=== PATIENT | female | born 1970 | race Caucasian/White ===

== ENCOUNTER 2022-01-18 21:56 | Emergency (ER) | payer BC ==
[~2022-01-18] VITALS: Ht 167.6 cm; Wt 67.7 kg
--- NOTE | 2022-01-18 22:37 | NUR ---
[employer] CALLED AND THEY REPORTED THAT THE DOSAGE WAS NOT ALARMING. PT SHOULD BE SAFE TO GO HOME LONG SYMPTOMS DO NOT WORSEN.
--- NOTE | 2022-01-18 23:43 | NUR ---
PATIENT ADMITS TO ACCIDENTALLY TAKING 100MG OF ZOLOFT IN STEAD OF 50MG PO AT 2100. S/S DIZZINESS AND TINGLING. DENIES S/S NOW
[2022-01-19 00:47] VITALS: BP 114/75
== END 2022-01-19 00:50 | disposition home or self-care (01) ==
LOC: ER 21:57
DX: F41.9 Anxiety disorder, unspecified (principal); T50.905A Adverse effect of unspecified drugs, medicaments and biological substances, initial encounter; R42 Dizziness and giddiness; Z88.8 Allergy status to other drugs, medicaments and biological substances; Y92.89 Other specified places as the place of occurrence of the external cause
CPT/HCPCS: 93005; 99283

== ENCOUNTER 2022-05-13 02:14 | Emergency (ER) | payer BC ==
[~2022-05-13] VITALS: Ht 167.6 cm; Wt 61.4 kg
[2022-05-13] MEDS ORDERED: TRAZ-251 PO (03:22)
[2022-05-13] MEDS ORDERED: LORazepam 1 MG tablet PO ONE (03:25)
[2022-05-13] MEDS ORDERED: traZODone 50mg tablet PO ONE (03:25)
[2022-05-13 03:36] VITALS: BP 111/84
== END 2022-05-13 03:38 | disposition home or self-care (01) ==
LOC: ER 02:15
DX: F41.9 Anxiety disorder, unspecified (principal); G47.00 Insomnia, unspecified; Z88.8 Allergy status to other drugs, medicaments and biological substances; Z79.899 Other long term (current) drug therapy
CPT/HCPCS: 99283

== ENCOUNTER 2022-05-18 01:22 | Emergency (ER) | payer BC ==
[~2022-05-18 01:22] MED LIST: TRAZ-251 PO
== END 2022-05-18 02:43 | disposition left against medical advice (07) ==
LOC: ER 01:23
DX: G47.00 Insomnia, unspecified (principal); Z53.21 Procedure and treatment not carried out due to patient leaving prior to being seen by health care provider

== ENCOUNTER 2022-05-24 15:03 | Emergency (ER) | payer BC ==
[~2022-05-24] VITALS: Ht 167.6 cm; Wt 58.2 kg
[2022-05-24 16:04] VITALS: BP 109/70
[2022-05-24 17:44] LABS: EOSINOPHILS # (AUTO) 0.1 X10'3 (0-0.9); MONOCYTES # (AUTO) 0.4 X10'3 (0-0.9)
[2022-05-24 17:46] LABS: BASOPHILS # (AUTO) 0.1 X10'3 (0-0.2); BASOPHILS % (AUTO) 0.8 % (0-1); EOSINOPHILS % (AUTO) 1.7 % (0-6); HEMATOCRIT 39.7 % (35.0-45.0); HEMOGLOBIN 13.5 g/dl (12.0-16.0); LYMPHOCYTES # (AUTO) 1.5 X10'3 (1.1-4.8); MEAN CORPUSCULAR HEMOGLOBIN 31.4 PG (27.0-31.0); MEAN CORPUSCULAR HGB CONC 34.1 g/dL (33.0-36.5); MEAN CORPUSCULAR VOLUME 92.2 FL (78-98); MEAN PLATELET VOLUME 10.4 FL (7.4-10.4); NEUTROPHILS # (AUTO) 4.3 X10'3 (1.8-7.7); NEUTROPHILS % (AUTO) 67.5 % (42-75); PLATELET COUNT 194 X10'3 (140-440); RED CELL DISTRIBUTION WIDTH 13.7 % (11.5-14.5); WHITE BLOOD COUNT 6.4 X10'3 (4.5-11.0)
[2022-05-24 17:58] LABS: ALANINE AMINOTRANSFERASE 18 U/L (12-78); ALBUMIN 3.9 G/DL (3.4-5.0); ALBUMIN/GLOBULIN RATIO 1.1 (1.1-1.5); ALKALINE PHOSPHATASE 73 IU/L (46-116); ANION GAP 8 (8-16); ASPARTATE AMINO TRANSFERASE 11 U/L (10-37); BILIRUBIN,TOTAL 0.3 MG/DL (0.1-1.0); BLOOD UREA NITROGEN 13 MG/DL (7-18); BUN/CREATININE RATIO 19.7 (6.6-38.0); CALCIUM 9.1 MG/DL (8.5-10.1); CHLORIDE 103 MMOL/L (99-107); CREATININE 0.66 MG/DL (0.40-0.90); GLUCOSE 99 MG/DL (70-104); POTASSIUM 3.9 MMOL/L (3.5-5.1); SODIUM 140 MMOL/L (135-145); TOTAL CARBON DIOXIDE 29.5 MMOL/L (24-32); TOTAL PROTEIN 7.5 G/DL (6.4-8.2); eGFR > 90 ML/MIN
[2022-05-24 18:07] LABS: ETHANOL < 0.010 GM/DL (0.0-0.010)
== END 2022-05-24 20:17 | disposition left against medical advice (07) ==
LOC: ER 15:04
DX: F41.9 Anxiety disorder, unspecified (principal); G47.00 Insomnia, unspecified; Z53.21 Procedure and treatment not carried out due to patient leaving prior to being seen by health care provider
CPT/HCPCS: 36415; 80053; 80320; 84443; 85025

== ENCOUNTER 2025-10-06 20:46 | Emergency (ER) | payer BC ==
[~2025-10-06] VITALS: Ht 165.1 cm; Wt 56.8 kg
[2025-10-06 20:48] VITALS: BP 114/74; PULSE 90; RESP 16; O2SAT 99
[2025-10-06] MEDS: ALPRAZolam 0.25mg tablet PO ONE (21:08)
[2025-10-06] MEDS ORDERED: ALPR0.252 PO (21:34)
--- NOTE | 2025-10-06 21:34 | Physician Documentation ---
History of Present Illness ~ Chief Complaint: Anxiety Stated Complaint: ANXIETY Time Seen by MD: 21:01 HPI 55-year-old female experiencing situational life crisis with prior history of anxiety. She is scheduled scheduled for a psychiatry follow up on the 20 of October. She is requiring some breakthrough medication between now and then. She does have a prior history similar episode many years ago. No SI or HI tonight and she is to refer with anxiousness. She is accompanied by her . Long shared decision-making discussion regarding bridging her with Xanax with 1st dose in the emergency department tonight. She has access to her primary care's urgent care office tomorrow which accompanies the 1st each office. It is hopeful she will get a sooner appointment with Psychiatry after visiting her primary care tomorrow. She is very safe for discharge in he is coping well. Medication Reconciliation Allergies: Coded Allergies: prochlorperazine (Verified Allergy, Unknown, ANXIETY, 10/06/25) Scheduled Trazodone HCl (Trazodone HCl), 1 TAB PO HS Scheduled PRN Alprazolam (Xanax), 1 TAB PO Q12H PRN PRN for anxiety Past Medical History Past Medical History: Anxiety Past Surgical History: no surgical history Alcohol Use: None Drug Use: none Lives with: Family Lives In: Home Review of Systems All Other Systems at this time: Reviewed and Negative Constitutional: Reports: see HPI Physical Exam Vital Signs: RN Vital Signs have been reviewed: Yes, Temperature: 97.6, Source: Temporal, Heart Rate: 90, Respiratory Rate: 16, BP: 114/74, Pulse Oximetry: 99, Weight: 56.800 General Appearance: alert, other (To depressed) EENT: PERRL/EOMI Head: normal inspection Cardiovascular: normal peripheral pulses Extremities: non-tender Back: normal inspection Neurologic: oriented x4 Motor / Sensory: no motor deficit Appearance/Memory/Insight: appropriate appearance, appropriate insight Behavior/Eye contact/Speech: cooperative Thought/Hallucinations: normal thought pattern; No: flight of ideas Affect: appropriate Skin: warm/dry Progress Results/Orders Results/Orders Completed Orders - MIMI CAMPOS PAC Alprazolam Tablet (Xanax Tablet) (10/06/25 21:05) Medications Received in ER Medications (Trade) Dose Ordered Sig/Ramos Route PRN Reason Start Time Stop Time Status Last Admin Dose Admin (Xanax tablet) 0.25 mg ONCE ONCE PO 10/06/25 21:05 10/06/25 21:06 DC 10/06/25 21:08 0.25 MG Vital Signs 10/06/25 10/06/25 20:48 21:52 Temp 97.6 97.6 Pulse 90 Resp 16 B/P (MAP) 114/74 Pulse Ox 99 Medical Decision Making Additional information obtaine: family Findings Situation and I have crisis requiring breakthrough anxiolytic. First dose Xanax 0.25 in the emergency department with a bridge prescription. No red flags. Patient aligned with Psychiatry and with primary care. Differential Dx:Considerations: Include: Anxiety, Conversion disorder, Depressi on, Panic disorder, Personality disorder Departure Disposition: HOME / SELF CARE / HOMELESS Impression: Primary Impression: Anxiety Condition: Improved Additional Instructions: Tonight in the emergency department you received a single dose of Xanax. I have provided you with a breakthrough prescription for Xanax. Please outline herself with procedure urgent care for sooner appointment with your primary care physician and hopeful earlier appointment with Psychiatry. Return to the emergency department as needed in the interim. Thank you for visiting [facility] emergency department. Referrals: NO PRIMARY CARE PROVIDER (PCP) Prescriptions Alprazolam (Xanax) 0.25 Mg Tablet 1 TAB PO Q12H PRN PRN for anxiety for 30 Days, #20 TAB 0 Refills Prov: MIMI CAMPOS 10/06/25 Education Educated: Patient, Family Educated regarding: diagnosis, treatment, prognosis, need for follow up Signature Scribe Signature: . Attestation: . MIMI CAMPOS Oct 06, 2025 21:34
[2025-10-06 21:52] VITALS: TEMP 97.6
== END 2025-10-06 22:06 | disposition home or self-care (01) ==
LOC: ER 20:47
DX: F41.9 Anxiety disorder, unspecified (principal); F32.A Depression, unspecified; Z88.8 Allergy status to other drugs, medicaments and biological substances; Z79.899 Other long term (current) drug therapy
CPT/HCPCS: 99283